=== PATIENT | female | born 1940 | race Caucasian/White ===

== ENCOUNTER 2019-12-30 11:07 | Emergency (ER) | payer MEDICARE, OTHER ==
[~2019-12-30] VITALS: Ht 167.6 cm; Wt 92.5 kg
[~2019-12-30 11:07] MED LIST: MOBIC15 MG PO; PROTONIX 20 MG20 M1 PO; SINEMET 25-1001 EAC1 PO; SINGULAIR 10 MG10 M1 PO; TROSPIUM CHLORI20 MG PO; ZANTAC 150MG T150 MG PO
[2019-12-30] MEDS ORDERED: JARDIANCE10 MG PO (11:15)
--- NOTE | 2019-12-30 11:40 | EKG ---
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: [facility] : 1940 Requested By: Franco Montgomery Order Number: [id number] MD: Valente Santos Measurements Intervals [place] Rate: 56 P: 48 ID: [id number] QRS: 141 QRSD: 108 T: 89 QT: 427 QTc: 413 Interpretive Statements Sinus rhythm Right axis deviation Low voltage, extremity leads Compared to ECG 07/30/2017 12:19:15 Left posterior fascicular block no longer present T-wave abnormality no longer present Electronically Signed On 12-30-2019 11:39:14 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
[2019-12-30 11:45] LABS: ABSOLUTE EOSINOPHILS 0.1 thou/uL (0.0-0.7); ABSOLUTE LYMPHOCYTES 1.4 thou/uL (0.8-5.3); ABSOLUTE MONOCYTES 0.4 thou/uL (0.0-1.2); BASOPHILS 0.8 %; EOSINOPHILS 2.7 %; HEMATOCRIT 41.1 % (37.0-47.0); HEMOGLOBIN 14.4 gm/dL (12.0-15.0); LYMPHOCYTES 28.5 %; MCH 33.4 pg (26.0-34.0); MCHC 35.1 g/dL (28.0-37.0); MCV 95.2 fL (80.0-100.0); MONOCYTES 7.8 %; MPV 8.6 fl. (7.2-11.1); NUCLEATED RBCS 0 /100WBC; PLATELET COUNT* 210 thou/uL (150-400); POLYS 60.2 %; RBC 4.32 mil/uL (4.20-5.00)
[2019-12-30 11:55] LABS: APTT 23.5 Seconds (25.0-31.3); PROTIME 10.1 Seconds (9.20-11.50)
[2019-12-30 11:59] LABS: CALCIUM 9.6 mg/dL (8.5-10.1); CREATININE 0.8 mg/dL (0.6-1.3); POTASSIUM 4.4 mmol/L (3.5-5.1)
[2019-12-30 12:12] LABS: ALBUMIN 3.9 g/dL (3.4-5.0); CK-MB MASS 0.9 ng/mL (<0.5-3.6); MAGNESIUM 1.6 mg/dL (1.8-2.4); TOTAL BILIRUBIN 0.6 mg/dL (<0.1-1.0); TOTAL PROTEIN 7.3 g/dL (6.4-8.2)
[2019-12-30] MEDS ORDERED: XANAX 0.25 MG0.25 MG PO (12:30)
[2019-12-30 13:03] VITALS: BP 139/58
== END 2019-12-30 13:05 | disposition home or self-care (01) ==
LOC: M.ERS 11:07
PROVIDERS: Family Medicine
DX: R07.89 Other chest pain (principal); F41.9 Anxiety disorder, unspecified; M19.90 Unspecified osteoarthritis, unspecified site; Z85.3 Personal history of malignant neoplasm of breast; Z85.118 Personal history of other malignant neoplasm of bronchus and lung; Z90.710 Acquired absence of both cervix and uterus; Z90.49 Acquired absence of other specified parts of digestive tract; Z91.041 Radiographic dye allergy status; Z88.2 Allergy status to sulfonamides; Z88.6 Allergy status to analgesic agent

== ENCOUNTER 2020-12-29 13:30 | Observation (INO) | payer MEDICARE, OTHER ==
[~2020-12-29] VITALS: Ht 167.6 cm; Wt 91.2 kg
[~2020-12-29 13:30] MED LIST changes: +JARDIANCE10 MG PO; +XANAX 0.25 MG0.25 MG PO
[2020-12-29 13:37] VITALS: BP 137/50
[2020-12-29] MEDS ORDERED: TRULICITY1.5 MG/0.5 SUBQ (13:46)
[2020-12-29 13:56] LABS: ABSOLUTE EOSINOPHILS 0.2 thou/uL (0.0-0.7); ABSOLUTE LYMPHOCYTES 1.6 thou/uL (0.8-5.3); ABSOLUTE MONOCYTES 0.4 thou/uL (0.0-1.2); ABSOLUTE NEUTROPHILS 2.6 thou/uL (1.6-8.1); BASOPHILS 0.9 %; EOSINOPHILS 4.1 %; HEMATOCRIT 43.9 % (37.0-47.0); HEMOGLOBIN 14.6 gm/dL (12.0-15.0); LYMPHOCYTES 32.8 %; MCH 32.9 pg (26.0-34.0); MCHC 33.2 g/dL (28.0-37.0); MONOCYTES 8.1 %; MPV 8.5 fl. (7.2-11.1); NUCLEATED RBCS 0 /100WBC; PLATELET COUNT* 238 thou/uL (150-400); POLYS 54.1 %; RBC 4.43 mil/uL (4.20-5.00); RDW-CV 13.2 % (10.5-14.5); WBC 4.8 thou/uL (4.0-11.0)
[2020-12-29 14:05] LABS: CALCIUM 9.3 mg/dL (8.5-10.1); CREATININE 0.9 mg/dL (0.6-1.3); POTASSIUM 4.7 mmol/L (3.5-5.1)
[2020-12-29 14:15] LABS: ALBUMIN 4.1 g/dL (3.4-5.0); MAGNESIUM 1.8 mg/dL (1.8-2.4); TOTAL BILIRUBIN 0.7 mg/dL (<0.1-1.0); TOTAL PROTEIN 7.3 g/dL (6.4-8.2)
--- NOTE | 2020-12-29 14:56 | EKG ---
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: : 1940 Requested By: Jean-Pierre Saul Order Number: [id number] MD: Presley Saha Measurements Intervals [place] Rate: 59 P: 43 AR: 160 QRS: 148 QRSD: 104 T: 92 QT: 420 QTc: 416 Interpretive Statements Sinus rhythm Right axis deviation Low voltage, extremity leads Abnormal R-wave progression, late transition Compared to ECG 12/30/2019 11:11:58 No significant changes Electronically Signed On 12-29-2020 14:56:40 TAPPER OPERATOR by Presley Saha [email or web address] <ELECTRONICALLY SIGNED> By: Presley Saha MD, [facility] 12/29/20 1456 1339 1339 Presley Saha MD, [facility] /EPI
[2020-12-29 17:50] VITALS: BP 135/63
[2020-12-29 17:55] VITALS: BP 135/63
== END 2020-12-29 17:50 | disposition left against medical advice (07) ==
LOC: M.ERS 13:30 → M.TBA-ER 16:21
PROVIDERS: Emergency Medicine Emergency Medical Services; ADMIT Internal Medicine; ATTEND Internal Medicine
DX: R07.89 Other chest pain (principal); F41.9 Anxiety disorder, unspecified; M19.90 Unspecified osteoarthritis, unspecified site; Z85.118 Personal history of other malignant neoplasm of bronchus and lung; Z79.899 Other long term (current) drug therapy; Z20.822 Contact with and (suspected) exposure to COVID-19

== ENCOUNTER 2021-07-30 12:30 | Emergency (ER) | payer MEDICARE, OTHER ==
[~2021-07-30] VITALS: Ht 167.6 cm; Wt 85.3 kg
[~2021-07-30 12:30] MED LIST changes: +TRULICITY1.5 MG/0.5 SUBQ
[2021-07-30 12:53] VITALS: BP 112/44
== END 2021-07-30 13:57 | disposition home or self-care (01) ==
LOC: M.ERS 12:30
DX: L53.9 Erythematous condition, unspecified (principal); L29.9 Pruritus, unspecified; Z53.21 Procedure and treatment not carried out due to patient leaving prior to being seen by health care provider